=== PATIENT | female | born 1985 | race Caucasian/White ===

== ENCOUNTER 2021-01-07 03:16 | Observation (INO) ==
[2021-01-07 04:01] LABS: Bilirubin,Urine Negative (Negative); Blood,Urine Negative (Negative); Clarity,Urine Clear (Clear); Color,Urine Light-Yellow (Yellow); Glucose,Urine (UA) Normal (Normal); Ketones,Urine Negative (Negative); Leukocyte Esterase,Urine Negative (Negative); Nitrite,Urine Negative (Negative); Protein,Urine Trace mg/dL (Neg-Trace); Specific Gravity,Urine 1.025 (1.010-1.025); Urobilinogen,Urine Normal (Normal)
[2021-01-07] MEDS ORDERED: Ondansetron 4 MG/2 ML VIAL IVP ONE (04:41)
[2021-01-07] MEDS ORDERED: Morphine Sulfate 2 MG/ML SYRINGE IVP ONE (04:42)
[2021-01-07 06:02] LABS: Basophils # 0.1 K/mcL (0.0-0.2); Basophils % 0.4 %; Eosinophils # 0.3 K/mcL (0.0-0.6); Eosinophils % 1.9 %; Hematocrit 44.4 % (35.3-44.9); Hemoglobin 13.7 g/dL (11.5-15.4); Immature Granulocytes % 0.4 % (0-4); Lymphocytes # 3.3 K/mcL (0.6-4.6); Lymphocytes % 20.8 %; Mean Corpuscular HGB Conc 30.9 g/dL (31.6-35.5); Mean Corpuscular Volume 87.4 fL (83.0-100.0); Mean Platelet Volume 10.3 fL (9.4-12.4); Monocytes # 0.9 K/mcL (0.0-1.3); Monocytes % 5.7 %; Neutrophils # 11.1 K/mcL (1.6-8.9); Platelet Count 269 K/mcL (140-400); Red Blood Count 5.08 M/mcL (3.82-4.97); Red Cell Distribution Width 14.5 % (11.5-14.5); Segmented Neutrophils % 70.8 %; White Blood Count 15.7 K/mcL (4.3-11.1)
[2021-01-07 06:23] LABS: BUN/Creatinine Ratio 13 (6-26); Blood Urea Nitrogen 11 mg/dL (6-20); Carbon Dioxide 24 mEq/L (23-29); Chloride 108 mEq/L (98-107); Glucose 105 mg/dL (70-105); Osmolality,Calculated 288 (280-300); Potassium 3.7 mEq/L (3.5-5.1); Sodium 139 mEq/L (136-145); eGFR For African Americans > 60 (> 60); eGFR For Non-African Americans > 60 (> 60)
[2021-01-07] MEDS ORDERED: *HR* FentaNYL (PF) 100 MCG/2 ML VIAL IVP ONE (07:00)
[2021-01-07] MEDS ORDERED: Vancomycin 2,000 MG/520 ML IV.SOLN IVPB ONE (07:45)
[2021-01-07] MEDS ORDERED: Piperacillin/Tazobactam 3.375 GM in 0.9 % Sodium Chloride Mini Bag 100 ML IVPB ONE (07:45)
[2021-01-07] MEDS ORDERED: Naloxone 0.4 MG/ML INJ IVP PRN (08:49)
[2021-01-07] MEDS ORDERED: Acetaminophen 325 MG TABLET PO PRN (08:49)
[2021-01-07] MEDS ORDERED: *HR* HYDROcodone/Acet 5/325 mg TABLET PO PRN (08:49)
[2021-01-07] MEDS ORDERED: Melatonin 3 MG TABLET PO PRN (08:49)
[2021-01-07] MEDS ORDERED: Ondansetron 4 MG/2 ML VIAL IVP PRN (08:49)
[2021-01-07] MEDS: *HR* OxyCODONE Immed Rel 5 MG TABLET PO PRN ×3 (10:00→23:46)
[2021-01-07] MEDS: Piperacillin/Tazobactam 3.375 GM in 0.9 % Sodium Chloride Mini Bag 100 ML IVPB SCH ×2 (16:57→23:47)
[2021-01-08 02:31] LABS: Hematocrit 42.6 % (35.3-44.9); Hemoglobin 12.9 g/dL (11.5-15.4); Mean Corpuscular HGB Conc 30.3 g/dL (31.6-35.5); Mean Corpuscular Hemoglobin 26.9 pg (28.0-33.3); Mean Corpuscular Volume 88.9 fL (83.0-100.0); Platelet Count 255 K/mcL (140-400); Red Blood Count 4.79 M/mcL (3.82-4.97); Red Cell Distribution Width 14.6 % (11.5-14.5); White Blood Count 13.6 K/mcL (4.3-11.1)
[2021-01-08 02:52] LABS: BUN/Creatinine Ratio 18 (6-26); Blood Urea Nitrogen 16 mg/dL (6-20); Calcium 8.8 mg/dL (8.6-10.3); Carbon Dioxide 26 mEq/L (23-29); Chloride 106 mEq/L (98-107); Glucose 115 mg/dL (70-105); Osmolality,Calculated 288 (280-300); Potassium 4.3 mEq/L (3.5-5.1); Sodium 138 mEq/L (136-145); eGFR For African Americans > 60 (> 60); eGFR For Non-African Americans > 60 (> 60)
[2021-01-08 07:47] VITALS: BP 127/75
[2021-01-08] MEDS: Piperacillin/Tazobactam 3.375 GM in 0.9 % Sodium Chloride Mini Bag 100 ML IVPB SCH (08:26)
[2021-01-08] MEDS: *HR* OxyCODONE Immed Rel 5 MG TABLET PO PRN (08:33)
== END 2021-01-08 10:25 | disposition home or self-care (01) ==
LOC: 3BNU 03:16 → EMEROOARM 03:16 → SUATTDRO 08:47 → 3BNU 09:30
PROVIDERS: ADMIT Internal Medicine; ATTEND Internal Medicine

== ENCOUNTER 2022-03-14 18:34 | Inpatient (IN) ==
[2022-03-14] MEDS ORDERED: 0.9 % Sodium Chloride 1,000 ML IVC ONE (23:01)
[2022-03-14] MEDS ORDERED: Iopamidol - 370 500 ML MLS IVP ONE (23:05)
[2022-03-14 23:33] LABS: Basophils # 0.1 K/mcL (0.0-0.2); Basophils % 0.4 %; Eosinophils # 0.7 K/mcL (0.0-0.6); Eosinophils % 3.4 %; Hematocrit 39.1 % (35.3-44.9); Hemoglobin 12.4 g/dL (11.5-15.4); Immature Granulocytes % 1.3 % (0-4); Lymphocytes # 2.3 K/mcL (0.6-4.6); Mean Corpuscular HGB Conc 31.7 g/dL (31.6-35.5); Mean Corpuscular Hemoglobin 27.3 pg (28.0-33.3); Mean Corpuscular Volume 86.1 fL (83.0-100.0); Mean Platelet Volume 9.8 fL (9.4-12.4); Monocytes # 1.9 K/mcL (0.0-1.3); Monocytes % 8.9 %; Neutrophils # 15.9 K/mcL (1.6-8.9); Platelet Count 366 K/mcL (140-400); Red Blood Count 4.54 M/mcL (3.82-4.97); Red Cell Distribution Width 14.7 % (11.5-14.5); White Blood Count 21.2 K/mcL (4.3-11.1)
[2022-03-14] MEDS ORDERED: Vancomycin 2,000 MG/520 ML IV.SOLN IVPB ONE (23:44)
[2022-03-14] MEDS ORDERED: Piperacillin/Tazobactam 3.375 GM in 0.9 % Sodium Chloride Mini Bag 100 ML IVPB ONE (23:44)
[2022-03-14 23:52] LABS: BUN/Creatinine Ratio 13 (6-26); Blood Urea Nitrogen 9 mg/dL (6-20); Calcium 8.8 mg/dL (8.6-10.3); Carbon Dioxide 22 mEq/L (23-29); Chloride 103 mEq/L (98-107); Glucose 89 mg/dL (70-105); Osmolality,Calculated 278 (280-300); Potassium 3.9 mEq/L (3.5-5.1); Sodium 135 mEq/L (136-145)
[2022-03-14 23:53] LABS: Bilirubin,Urine Negative (Negative); Blood,Urine Moderate (Negative); Clarity,Urine Turbid (Clear); Color,Urine Yellow (Yellow); Glucose,Urine (UA) Normal (Normal); Ketones,Urine Trace mg/dL (Negative); Leukocyte Esterase,Urine Moderate (Negative); Mucus,Urine Few per lpf (None-Few); Nitrite,Urine Negative (Negative); PH,Urine 6.5 pH Units (5.0-8.0); Protein,Urine Trace mg/dL (Neg-Trace); Specific Gravity,Urine 1.019 (1.010-1.025); Squamous Epithelial Cell,Urine Few per hpf (None-Few); WBC,Urine 15-30 per hpf (0-3)
[2022-03-15] MEDS ORDERED: Morphine Sulfate 2 MG/ML SYRINGE IVP ONE ×2 (00:13→02:12)
[2022-03-15] MEDS ORDERED: Ondansetron 4 MG/2 ML VIAL IVP PRN (03:12)
[2022-03-15] MEDS ORDERED: polyethylene glycoL 3350 17 GM POWD.PACK PO PRN (03:12)
[2022-03-15] MEDS ORDERED: Ringers Solution, Lactated 1,000 ML IVC SCH (03:15)
[2022-03-15] MEDS ORDERED: *HR* OxyCODONE Immed Rel 5 MG TABLET PO PRN ×2 (04:24→12:47)
[2022-03-15] MEDS: *HR* HYDROmorphone (PF) 1 MG/ML SYRINGE IVP PRN ×4 (05:10→17:35)
[2022-03-15] MEDS ORDERED: Piperacillin/Tazobactam 3.375 GM in 0.9 % Sodium Chloride Mini Bag 100 ML IVPB SCH (08:00)
[2022-03-15] MEDS ORDERED: Pantoprazole 40 MG VIAL IVP SCH (09:00)
[2022-03-15] MEDS ORDERED: Vancomycin 2,000 MG/520 ML IV.SOLN IVPB ONE ×2 (09:30→14:00)
[2022-03-15] MEDS ORDERED: *HR* Midazolam HCl 2 MG/2 ML VIAL ONE (10:04)
[2022-03-15] MEDS ORDERED: *HR* FentaNYL (PF) 100 MCG/2 ML VIAL ONE ×2 (10:04→12:10)
[2022-03-15] MEDS ORDERED: *HR* Propofol 200 MG/20 ML VIAL IVP ONE (10:04)
[2022-03-15] MEDS ORDERED: *HR* Rocuronium Bromide 50 MG/5 ML VIAL ONE (10:08)
[2022-03-15] MEDS ORDERED: Lidocaine -MPF 2% 5 ML VIAL ONE (10:08)
[2022-03-15] MEDS ORDERED: Lidocaine HCL 4 ML Topical Solution (Laryng-O-Jet Kit Sterile Pak) TP ONE (10:08)
[2022-03-15] MEDS ORDERED: Ondansetron 4 MG/2 ML VIAL ONE (10:08)
[2022-03-15] MEDS ORDERED: *HR* Succinylcholine 200 MG/10 ML VIAL IVP ONE (11:01)
[2022-03-15] MEDS ORDERED: Acetaminophen IV 1,000 MG/100 ML BAG IVPB ONE (11:30)
[2022-03-15] MEDS ORDERED: *HR* FentaNYL (PF) 100 MCG/2 ML VIAL IVP ONE (12:10)
[2022-03-15] MEDS: *HR* HYDROmorphone PF 0.5 MG/0.5 ML SYRINGE IVP PRN ×2 (12:22→12:32)
[2022-03-15] MEDS: Piperacillin/Tazobactam 3.375 GM in 0.9 % Sodium Chloride Mini Bag 100 ML IVPB SCH (16:41)
[2022-03-15] MEDS: *HR* Enoxaparin 100 MG/ML SYRINGE SQ SCH (17:36)
[2022-03-15] MEDS: polyethylene glycoL 3350 17 GM POWD.PACK PO PRN (17:49)
[2022-03-15] MEDS: *HR* OxyCODONE Immed Rel 5 MG TABLET PO PRN (19:54)
[2022-03-15] MEDS: Ringers Solution, Lactated 1,000 ML IVC SCH (19:56)
[2022-03-15] MEDS ORDERED: *HR* HYDROmorphone (PF) 1 MG/ML SYRINGE IVP STA (21:59)
[2022-03-16] MEDS: Piperacillin/Tazobactam 3.375 GM in 0.9 % Sodium Chloride Mini Bag 100 ML IVPB SCH ×4 (00:09→23:52)
[2022-03-16] MEDS: *HR* HYDROmorphone (PF) 1 MG/ML SYRINGE IVP PRN ×4 (02:09→16:03)
[2022-03-16] MEDS: Ringers Solution, Lactated 1,000 ML IVC SCH ×3 (03:50→23:48)
[2022-03-16] MEDS: *HR* OxyCODONE Immed Rel 5 MG TABLET PO PRN ×3 (03:50→19:11)
[2022-03-16 08:03] LABS: Basophils # 0.1 K/mcL (0.0-0.2); Basophils % 0.3 %; Eosinophils # 0.1 K/mcL (0.0-0.6); Eosinophils % 0.4 %; Hematocrit 35.3 % (35.3-44.9); Hemoglobin 11.2 g/dL (11.5-15.4); Immature Granulocytes % 1.2 % (0-4); Lymphocytes # 2.4 K/mcL (0.6-4.6); Lymphocytes % 9.9 %; Mean Corpuscular HGB Conc 31.7 g/dL (31.6-35.5); Mean Corpuscular Hemoglobin 27.1 pg (28.0-33.3); Mean Corpuscular Volume 85.3 fL (83.0-100.0); Mean Platelet Volume 9.8 fL (9.4-12.4); Monocytes # 1.8 K/mcL (0.0-1.3); Monocytes % 7.1 %; Platelet Count 331 K/mcL (140-400); Red Blood Count 4.14 M/mcL (3.82-4.97); Red Cell Distribution Width 14.7 % (11.5-14.5); Segmented Neutrophils % 81.1 %; White Blood Count 24.6 K/mcL (4.3-11.1)
[2022-03-16] MEDS: Pantoprazole 40 MG VIAL IVP SCH (08:10)
[2022-03-16] MEDS: polyethylene glycoL 3350 17 GM POWD.PACK PO PRN (08:27)
[2022-03-16] MEDS ORDERED: *HR* HYDROmorphone (PF) 1 MG/ML SYRINGE IVP ONE (11:08)
[2022-03-16] MEDS: *HR* Enoxaparin 100 MG/ML SYRINGE SQ SCH (15:33)
[2022-03-16] MEDS ORDERED: *HR* HYDROmorphone 2 MG/ML SYRINGE IVP PRN ×5 (17:44→18:10)
[2022-03-17] MEDS: *HR* OxyCODONE Immed Rel 5 MG TABLET PO PRN ×4 (03:06→20:43)
[2022-03-17 05:05] LABS: Basophils # 0.1 K/mcL (0.0-0.2); Basophils % 0.3 %; Eosinophils # 0.5 K/mcL (0.0-0.6); Eosinophils % 2.4 %; Hematocrit 35.2 % (35.3-44.9); Hemoglobin 11.1 g/dL (11.5-15.4); Lymphocytes # 3.1 K/mcL (0.6-4.6); Lymphocytes % 15.5 %; Mean Corpuscular HGB Conc 31.5 g/dL (31.6-35.5); Mean Corpuscular Hemoglobin 27.3 pg (28.0-33.3); Mean Corpuscular Volume 86.5 fL (83.0-100.0); Mean Platelet Volume 9.5 fL (9.4-12.4); Monocytes # 1.3 K/mcL (0.0-1.3); Monocytes % 6.3 %; Neutrophils # 14.8 K/mcL (1.6-8.9); Platelet Count 368 K/mcL (140-400); Red Blood Count 4.07 M/mcL (3.82-4.97); Red Cell Distribution Width 14.8 % (11.5-14.5); Segmented Neutrophils % 74.5 %; White Blood Count 19.9 K/mcL (4.3-11.1)
[2022-03-17] MEDS: *HR* HYDROmorphone (PF) 1 MG/ML SYRINGE IVP PRN ×4 (05:23→19:31)
[2022-03-17] MEDS: *HR* Enoxaparin 100 MG/ML SYRINGE SQ SCH ×2 (05:24→17:29)
[2022-03-17] MEDS: Piperacillin/Tazobactam 3.375 GM in 0.9 % Sodium Chloride Mini Bag 100 ML IVPB SCH ×2 (08:44→15:15)
[2022-03-17] MEDS: *HR* HYDROmorphone 2 MG/ML SYRINGE IVP PRN ×2 (12:40→13:08)
[2022-03-17] MEDS: polyethylene glycoL 3350 17 GM POWD.PACK PO PRN (15:16)
[2022-03-17] MEDS: Pantoprazole 40 MG VIAL IVP SCH (18:37)
[2022-03-17] MEDS: Simethicone 80 MG TAB.CHEW PO PRN (20:42)
[2022-03-18] MEDS: *HR* HYDROmorphone 2 MG/ML SYRINGE IVP PRN ×4 (00:07→10:17)
[2022-03-18] MEDS: Piperacillin/Tazobactam 3.375 GM in 0.9 % Sodium Chloride Mini Bag 100 ML IVPB SCH ×3 (00:46→15:41)
[2022-03-18] MEDS: *HR* OxyCODONE Immed Rel 5 MG TABLET PO PRN ×4 (03:15→23:42)
[2022-03-18 05:18] LABS: Basophils # 0.1 K/mcL (0.0-0.2); Basophils % 0.4 %; Eosinophils # 0.5 K/mcL (0.0-0.6); Hemoglobin 11.5 g/dL (11.5-15.4); Immature Granulocytes % 1.6 % (0-4); Lymphocytes % 16.9 %; Mean Corpuscular HGB Conc 31.1 g/dL (31.6-35.5); Mean Corpuscular Hemoglobin 26.8 pg (28.0-33.3); Mean Corpuscular Volume 86.2 fL (83.0-100.0); Mean Platelet Volume 9.5 fL (9.4-12.4); Monocytes # 1.2 K/mcL (0.0-1.3); Monocytes % 6.6 %; Neutrophils # 12.8 K/mcL (1.6-8.9); Platelet Count 357 K/mcL (140-400); Red Blood Count 4.29 M/mcL (3.82-4.97); Red Cell Distribution Width 14.9 % (11.5-14.5); Segmented Neutrophils % 71.5 %; White Blood Count 17.9 K/mcL (4.3-11.1)
[2022-03-18] MEDS: *HR* HYDROmorphone (PF) 1 MG/ML SYRINGE IVP PRN ×3 (05:23→21:28)
[2022-03-18] MEDS: *HR* Enoxaparin 100 MG/ML SYRINGE SQ SCH ×2 (05:24→18:13)
[2022-03-18 06:01] LABS: Estimated Average Glucose 123 mg/dl; Hemoglobin A1C 5.9 %
[2022-03-18] MEDS: Pantoprazole 40 MG VIAL IVP SCH (08:47)
[2022-03-18] MEDS ORDERED: Vancomycin 2,000 MG/520 ML IV.SOLN IVPB ONE (11:00)
[2022-03-18] MEDS: Simethicone 80 MG TAB.CHEW PO PRN ×2 (11:06→18:25)
[2022-03-18] MEDS: Ringers Solution, Lactated 1,000 ML IVC SCH ×2 (13:34→21:29)
[2022-03-18] MEDS: Acetaminophen 325 MG TABLET PO PRN (14:23)
[2022-03-18] MEDS: Clindamycin 900 MG/50 ML 900 MG/50 ML IV.SOLN IVPB SCH ×2 (14:24→22:55)
[2022-03-18] MEDS ORDERED: Fluconazole 150 MG TABLET PO ONE (14:49)
[2022-03-18] MEDS ORDERED: Clindamycin 900 MG/50 ML 900 MG/50 ML IV.SOLN IVPB SCH (16:00)
[2022-03-18] MEDS: Ketorolac 30 MG/ML VIAL IM SCH ×2 (18:14→23:41)
[2022-03-18] MEDS: Vancomycin 2,000 MG/520 ML IV.SOLN IVPB SCH (23:40)
[2022-03-19] MEDS: *HR* HYDROmorphone (PF) 1 MG/ML SYRINGE IVP PRN ×6 (01:48→23:16)
[2022-03-19] MEDS: Piperacillin/Tazobactam 3.375 GM in 0.9 % Sodium Chloride Mini Bag 100 ML IVPB SCH ×3 (02:18→20:08)
[2022-03-19] MEDS: Ketorolac 30 MG/ML VIAL IM SCH ×2 (05:30→17:38)
[2022-03-19] MEDS: *HR* Enoxaparin 100 MG/ML SYRINGE SQ SCH ×2 (05:33→17:38)
[2022-03-19] MEDS: Ringers Solution, Lactated 1,000 ML IVC SCH ×2 (05:39→20:10)
[2022-03-19] MEDS: *HR* OxyCODONE Immed Rel 5 MG TABLET PO PRN ×4 (07:31→21:35)
[2022-03-19] MEDS: Clindamycin 900 MG/50 ML 900 MG/50 ML IV.SOLN IVPB SCH ×3 (07:31→23:14)
[2022-03-19] MEDS: Pantoprazole 40 MG VIAL IVP SCH (09:12)
[2022-03-19] MEDS: Simethicone 80 MG TAB.CHEW PO PRN (09:37)
[2022-03-19] MEDS: *HR* HYDROmorphone 2 MG/ML SYRINGE IVP PRN (10:01)
[2022-03-19] MEDS: Vancomycin 2,000 MG/520 ML IV.SOLN IVPB SCH (11:21)
[2022-03-19] MEDS ORDERED: *HR* HYDROmorphone (PF) 1 MG/ML SYRINGE ONE (18:51)
[2022-03-19] MEDS ORDERED: Simethicone 80 MG TAB.CHEW PO ONE (18:57)
[2022-03-19] MEDS ORDERED: Ringers Solution, Lactated 1,000 ML ONE (19:23)
[2022-03-19] MEDS ORDERED: Piperacillin/Tazobactam 3.375 GM VIAL ONE (20:05)
[2022-03-19] MEDS ORDERED: 0.9 % Sodium Chloride Mini Bag 100 ML ONE (20:06)
[2022-03-19 22:44] LABS: Basophils # 0.1 K/mcL (0.0-0.2); Basophils % 0.4 %; Eosinophils # 0.6 K/mcL (0.0-0.6); Eosinophils % 3.3 %; Hematocrit 33.5 % (35.3-44.9); Hemoglobin 10.5 g/dL (11.5-15.4); Immature Granulocytes % 1.8 % (0-4); Lymphocytes # 2.5 K/mcL (0.6-4.6); Lymphocytes % 13.5 %; Mean Corpuscular HGB Conc 31.3 g/dL (31.6-35.5); Mean Corpuscular Hemoglobin 27.1 pg (28.0-33.3); Mean Corpuscular Volume 86.6 fL (83.0-100.0); Mean Platelet Volume 9.3 fL (9.4-12.4); Monocytes # 1.1 K/mcL (0.0-1.3); Monocytes % 6.3 %; Neutrophils # 13.6 K/mcL (1.6-8.9); Platelet Count 302 K/mcL (140-400); Red Blood Count 3.87 M/mcL (3.82-4.97); Red Cell Distribution Width 14.9 % (11.5-14.5); Segmented Neutrophils % 74.7 %; White Blood Count 18.2 K/mcL (4.3-11.1)
[2022-03-20] MEDS: Vancomycin 2,000 MG/520 ML IV.SOLN IVPB SCH (00:30)
[2022-03-20] MEDS: Ketorolac 30 MG/ML VIAL IM SCH ×3 (00:31→12:32)
[2022-03-20] MEDS: *HR* OxyCODONE Immed Rel 5 MG TABLET PO PRN ×5 (02:29→20:05)
[2022-03-20] MEDS: Piperacillin/Tazobactam 3.375 GM in 0.9 % Sodium Chloride Mini Bag 100 ML IVPB SCH ×3 (05:04→22:40)
[2022-03-20] MEDS: *HR* Enoxaparin 100 MG/ML SYRINGE SQ SCH ×2 (05:04→19:16)
[2022-03-20] MEDS: *HR* HYDROmorphone (PF) 1 MG/ML SYRINGE IVP PRN ×3 (05:05→16:48)
[2022-03-20] MEDS: Clindamycin 900 MG/50 ML 900 MG/50 ML IV.SOLN IVPB SCH ×2 (06:53→15:48)
[2022-03-20] MEDS: Acetaminophen 325 MG TABLET PO PRN (08:11)
[2022-03-20] MEDS: polyethylene glycoL 3350 17 GM POWD.PACK PO PRN (08:11)
[2022-03-20] MEDS: *HR* HYDROmorphone 2 MG/ML SYRINGE IVP PRN ×4 (08:12→22:39)
[2022-03-20] MEDS: Simethicone 80 MG TAB.CHEW PO PRN ×2 (08:12→20:06)
[2022-03-20 08:34] LABS: Basophils # 0.1 K/mcL (0.0-0.2); Basophils % 0.3 %; Eosinophils # 0.6 K/mcL (0.0-0.6); Eosinophils % 3.6 %; Hematocrit 33.2 % (35.3-44.9); Hemoglobin 10.1 g/dL (11.5-15.4); Immature Granulocytes % 1.9 % (0-4); Lymphocytes % 11.4 %; Mean Corpuscular HGB Conc 30.4 g/dL (31.6-35.5); Mean Corpuscular Hemoglobin 26.6 pg (28.0-33.3); Mean Corpuscular Volume 87.4 fL (83.0-100.0); Mean Platelet Volume 9.4 fL (9.4-12.4); Monocytes # 1.3 K/mcL (0.0-1.3); Monocytes % 7.3 %; Neutrophils # 12.9 K/mcL (1.6-8.9); Platelet Count 336 K/mcL (140-400); Red Cell Distribution Width 15.1 % (11.5-14.5); Segmented Neutrophils % 75.5 %; White Blood Count 17.2 K/mcL (4.3-11.1)
[2022-03-20] MEDS ORDERED: Vancomycin 1,500 MG/265 ML IV.SOLN IVPB SCH (12:00)
[2022-03-20] MEDS: Pantoprazole 40 MG VIAL IVP SCH (12:08)
[2022-03-20] MEDS: Ondansetron 4 MG/2 ML VIAL IVP PRN ×2 (13:49→20:06)
[2022-03-20] MEDS ORDERED: Ketorolac 30 MG/ML VIAL IVP SCH (18:00)
[2022-03-20] MEDS: 0.9 % Sodium Chloride 1,000 ML IVC SCH (19:16)
[2022-03-21] MEDS ORDERED: Clindamycin 900 MG/50 ML 900 MG/50 ML IV.SOLN IVPB SCH (00:10)
[2022-03-21] MEDS: *HR* OxyCODONE Immed Rel 5 MG TABLET PO PRN ×4 (00:46→15:26)
[2022-03-21] MEDS: Acetaminophen 325 MG TABLET PO PRN ×2 (00:47→15:27)
[2022-03-21] MEDS: Ondansetron 4 MG/2 ML VIAL IVP PRN ×4 (03:26→22:52)
[2022-03-21] MEDS: 0.9 % Sodium Chloride 1,000 ML IVC SCH ×2 (03:26→13:26)
[2022-03-21] MEDS: *HR* HYDROmorphone (PF) 1 MG/ML SYRINGE IVP PRN ×2 (03:27→13:32)
[2022-03-21 05:37] LABS: Albumin/Globulin Ratio 0.9 (1.1-2.2); Bilirubin,Total 0.6 mg/dL (0.3-1.0); Calcium 8.2 mg/dL (8.6-10.3); Globulin 3.2 g/dL (2.4-3.5); Potassium 4.1 mEq/L (3.5-5.1); Total Protein 6.2 g/dL (6.4-8.9)
[2022-03-21] MEDS: Piperacillin/Tazobactam 3.375 GM in 0.9 % Sodium Chloride Mini Bag 100 ML IVPB SCH ×2 (06:15→13:28)
[2022-03-21] MEDS: *HR* Enoxaparin 100 MG/ML SYRINGE SQ SCH (06:17)
[2022-03-21] MEDS: Simethicone 80 MG TAB.CHEW PO PRN (06:41)
[2022-03-21] MEDS: Pantoprazole 40 MG VIAL IVP SCH (08:28)
[2022-03-21 08:38] LABS: Basophils # 0.1 K/mcL (0.0-0.2); Basophils % 0.3 %; Eosinophils # 0.6 K/mcL (0.0-0.6); Eosinophils % 3.4 %; Hematocrit 32.4 % (35.3-44.9); Hemoglobin 9.9 g/dL (11.5-15.4); Lymphocytes # 1.8 K/mcL (0.6-4.6); Lymphocytes % 10.3 %; Mean Corpuscular HGB Conc 30.6 g/dL (31.6-35.5); Mean Corpuscular Volume 88.3 fL (83.0-100.0); Mean Platelet Volume 9.6 fL (9.4-12.4); Monocytes # 1.6 K/mcL (0.0-1.3); Monocytes % 8.9 %; Neutrophils # 13.5 K/mcL (1.6-8.9); Platelet Count 343 K/mcL (140-400); Red Blood Count 3.67 M/mcL (3.82-4.97); Red Cell Distribution Width 15.3 % (11.5-14.5); Segmented Neutrophils % 76.1 %; White Blood Count 17.7 K/mcL (4.3-11.1)
[2022-03-21] MEDS: *HR* HYDROmorphone 2 MG/ML SYRINGE IVP PRN ×4 (09:53→23:37)
[2022-03-21] MEDS: *HR* Heparin 5,000 UNIT/ML VIAL SQ SCH ×2 (10:59→23:42)
[2022-03-21 14:27] LABS: Bacteria,Urine Few per hpf (None-Few); Bilirubin,Urine Negative (Negative); Blood,Urine Moderate (Negative); Clarity,Urine Turbid (Clear); Color,Urine Light-Yellow (Yellow); Glucose,Urine (UA) Normal (Normal); Hyaline Casts,Urine Few per lpf (None Seen); Ketones,Urine Negative (Negative); Leukocyte Esterase,Urine Large (Negative); Nitrite,Urine Negative (Negative); Protein,Urine 50 mg/dL (Neg-Trace); Specific Gravity,Urine 1.012 (1.010-1.025); Squamous Epithelial Cell,Urine Many per hpf (None-Few); Urobilinogen,Urine Normal (Normal); WBC,Urine 15-30 per hpf (0-3)
[2022-03-21 16:13] LABS: Albumin 3.2 g/dL (3.5-5.7); Bilirubin,Total 0.6 mg/dL (0.3-1.0); Globulin 3.3 g/dL (2.4-3.5); Potassium 4.6 mEq/L (3.5-5.1); Total Protein 6.5 g/dL (6.4-8.9)
[2022-03-21] MEDS ORDERED: *HR* Promethazine 25 MG/ML VIAL IM PRN (19:35)
[2022-03-22] MEDS: 0.9 % Sodium Chloride 1,000 ML IVC SCH ×3 (02:24→17:39)
[2022-03-22] MEDS: *HR* OxyCODONE Immed Rel 5 MG TABLET PO PRN ×3 (02:24→18:53)
[2022-03-22 05:14] LABS: Potassium 4.3 mEq/L (3.5-5.1)
[2022-03-22] MEDS ORDERED: Piperacillin/Tazobactam 3.375 GM in 0.9 % Sodium Chloride Mini Bag 100 ML IVPB SCH ×2 (08:00)
[2022-03-22] MEDS: *HR* HYDROmorphone (PF) 1 MG/ML SYRINGE IVP PRN (08:35)
[2022-03-22] MEDS: *HR* Heparin 5,000 UNIT/ML VIAL SQ SCH ×3 (10:28→21:41)
[2022-03-22] MEDS: Pantoprazole 40 MG VIAL IVP SCH (10:29)
[2022-03-22] MEDS: Ondansetron 4 MG/2 ML VIAL IVP PRN ×2 (11:22→21:40)
[2022-03-22 11:49] LABS: Protein/Creatinine Ratio,Urine 0.73 mg/mg (0.00-0.20)
[2022-03-22] MEDS: Ringers Solution, Lactated 1,000 ML IVC SCH ×3 (11:54→11:57)
[2022-03-22] MEDS: *HR* HYDROmorphone 2 MG/ML SYRINGE IVP PRN ×3 (12:21→21:40)
[2022-03-22] MEDS ORDERED: Ondansetron 4 MG/2 ML VIAL IVP PRN ×2 (14:24→17:24)
[2022-03-22] MEDS ORDERED: *HR* HYDROmorphone PF 0.5 MG/0.5 ML SYRINGE IVP PRN ×2 (14:24→17:24)
[2022-03-22] MEDS ORDERED: Ondansetron 4 MG/2 ML VIAL ONE (14:46)
[2022-03-22] MEDS ORDERED: Lidocaine -MPF 2% 5 ML VIAL ONE (14:46)
[2022-03-22] MEDS ORDERED: *HR* FentaNYL (PF) 100 MCG/2 ML VIAL ONE ×2 (14:46→15:56)
[2022-03-22] MEDS ORDERED: *HR* Propofol 200 MG/20 ML VIAL IVP ONE (14:48)
[2022-03-22] MEDS ORDERED: *HR* Midazolam HCl 2 MG/2 ML VIAL ONE (14:48)
[2022-03-22] MEDS ORDERED: *HR* Succinylcholine 200 MG/10 ML VIAL IVP ONE (14:50)
[2022-03-22] MEDS ORDERED: *HR* Rocuronium Bromide 50 MG/5 ML VIAL ONE (14:51)
[2022-03-22] MEDS ORDERED: Lidocaine HCL 4 ML Topical Solution (Laryng-O-Jet Kit Sterile Pak) TP ONE (14:54)
[2022-03-22] MEDS ORDERED: CefOXitin 2,000 MG VIAL ONE (16:18)
[2022-03-22] MEDS ORDERED: Acetaminophen 325 MG TABLET PO PRN (17:24)
[2022-03-22] MEDS ORDERED: polyethylene glycoL 3350 17 GM POWD.PACK PO PRN (17:24)
[2022-03-22] MEDS ORDERED: *HR* HYDROmorphone 2 MG/ML SYRINGE IVP PRN (17:24)
[2022-03-22] MEDS: Piperacillin/Tazobactam 3.375 GM in 0.9 % Sodium Chloride Mini Bag 100 ML IVPB SCH (20:03)
[2022-03-23] MEDS: *HR* OxyCODONE Immed Rel 5 MG TABLET PO PRN ×4 (00:30→20:20)
[2022-03-23] MEDS: *HR* Promethazine 25 MG/ML VIAL IM PRN (00:31)
[2022-03-23] MEDS: 0.9 % Sodium Chloride 1,000 ML IVC SCH ×4 (03:17→17:14)
[2022-03-23] MEDS: *HR* HYDROmorphone 2 MG/ML SYRINGE IVP PRN ×2 (05:04→18:11)
[2022-03-23] MEDS: *HR* Heparin 5,000 UNIT/ML VIAL SQ SCH ×3 (05:25→20:21)
[2022-03-23 06:21] LABS: Hematocrit 29.4 % (35.3-44.9); Hemoglobin 9.1 g/dL (11.5-15.4); Mean Corpuscular Hemoglobin 26.9 pg (28.0-33.3); Mean Platelet Volume 9.1 fL (9.4-12.4); Platelet Count 308 K/mcL (140-400); Red Blood Count 3.38 M/mcL (3.82-4.97); Red Cell Distribution Width 15.4 % (11.5-14.5); White Blood Count 17.5 K/mcL (4.3-11.1)
[2022-03-23 06:41] LABS: Calcium 7.9 mg/dL (8.6-10.3); Magnesium 2.1 mg/dL (1.6-2.6); Potassium 4.7 mEq/L (3.5-5.1)
[2022-03-23] MEDS: Piperacillin/Tazobactam 3.375 GM in 0.9 % Sodium Chloride Mini Bag 100 ML IVPB SCH ×2 (07:35→20:19)
[2022-03-23] MEDS: Simethicone 80 MG TAB.CHEW PO PRN ×2 (07:42→20:35)
[2022-03-23] MEDS: Pantoprazole 40 MG VIAL IVP SCH (07:42)
[2022-03-23] MEDS: Ondansetron 4 MG/2 ML VIAL IVP PRN ×2 (07:42→17:13)
[2022-03-23 12:40] LABS: Uric Acid 7.7 mg/dL (2.3-7.6)
[2022-03-24] MEDS: 0.9 % Sodium Chloride 1,000 ML IVC SCH ×3 (01:23→17:17)
[2022-03-24 05:27] LABS: Hematocrit 27.6 % (35.3-44.9); Hemoglobin 8.5 g/dL (11.5-15.4); Mean Corpuscular HGB Conc 30.8 g/dL (31.6-35.5); Mean Corpuscular Hemoglobin 27.2 pg (28.0-33.3); Mean Corpuscular Volume 88.5 fL (83.0-100.0); Mean Platelet Volume 9.2 fL (9.4-12.4); Platelet Count 310 K/mcL (140-400); Red Blood Count 3.12 M/mcL (3.82-4.97); Red Cell Distribution Width 15.6 % (11.5-14.5)
[2022-03-24 05:31] LABS: VBG HCO3 20 mEq/L (21-27); VBG PCO2 44 mmHg (41-51); VBG PH 7.28 pH Units (7.32-7.42); VBG PO2 69 mmHg (25-50)
[2022-03-24 05:47] LABS: Albumin 2.8 g/dL (3.5-5.7); Albumin/Globulin Ratio 0.9 (1.1-2.2); Bilirubin,Direct 0.2 mg/dL (0.0-0.2); Bilirubin,Indirect 0.2 mg/dL (0.0-1.0); Bilirubin,Total 0.4 mg/dL (0.3-1.0); Calcium 7.6 mg/dL (8.6-10.3); Globulin 3.2 g/dL (2.4-3.5); Phosphorous 5.9 mg/dL (2.7-4.5); Potassium 4.9 mEq/L (3.5-5.1)
[2022-03-24] MEDS: *HR* HYDROmorphone 2 MG/ML SYRINGE IVP PRN ×2 (07:27→17:17)
[2022-03-24] MEDS: Piperacillin/Tazobactam 3.375 GM in 0.9 % Sodium Chloride Mini Bag 100 ML IVPB SCH ×2 (07:28→20:24)
[2022-03-24] MEDS: *HR* Heparin 5,000 UNIT/ML VIAL SQ SCH ×3 (07:28→20:25)
[2022-03-24] MEDS ORDERED: Ringers Solution, Lactated 1,000 ML IVC SCH (08:00)
[2022-03-24] MEDS: Pantoprazole 40 MG VIAL IVP SCH (08:08)
[2022-03-24] MEDS: Ondansetron 4 MG/2 ML VIAL IVP PRN ×2 (08:09→14:08)
[2022-03-24] MEDS: *HR* OxyCODONE Immed Rel 5 MG TABLET PO PRN ×2 (11:25→20:29)
[2022-03-24] MEDS: Simethicone 80 MG TAB.CHEW PO PRN ×2 (11:43→20:31)
[2022-03-25 03:04] LABS: Hematocrit 28.5 % (35.3-44.9); Hemoglobin 8.7 g/dL (11.5-15.4); Mean Corpuscular HGB Conc 30.5 g/dL (31.6-35.5); Mean Corpuscular Hemoglobin 26.8 pg (28.0-33.3); Mean Corpuscular Volume 87.7 fL (83.0-100.0); Mean Platelet Volume 9.3 fL (9.4-12.4); Platelet Count 319 K/mcL (140-400); Red Blood Count 3.25 M/mcL (3.82-4.97); Red Cell Distribution Width 15.6 % (11.5-14.5); White Blood Count 14.6 K/mcL (4.3-11.1)
[2022-03-25 03:16] LABS: VBG HCO3 21 mEq/L (21-27); VBG PCO2 50 mmHg (41-51); VBG PH 7.22 pH Units (7.32-7.42); VBG PO2 54 mmHg (25-50)
[2022-03-25 03:28] LABS: Calcium 8.1 mg/dL (8.6-10.3); Potassium 4.3 mEq/L (3.5-5.1)
[2022-03-25] MEDS: *HR* OxyCODONE Immed Rel 5 MG TABLET PO PRN ×4 (06:20→20:44)
[2022-03-25] MEDS: *HR* Heparin 5,000 UNIT/ML VIAL SQ SCH ×3 (06:21→20:45)
[2022-03-25] MEDS: Piperacillin/Tazobactam 3.375 GM in 0.9 % Sodium Chloride Mini Bag 100 ML IVPB SCH ×2 (09:30→20:43)
[2022-03-25] MEDS: Pantoprazole 40 MG VIAL IVP SCH (09:33)
[2022-03-25] MEDS: Simethicone 80 MG TAB.CHEW PO PRN (09:34)
[2022-03-25] MEDS: Ondansetron 4 MG/2 ML VIAL IVP PRN ×2 (09:35→16:50)
[2022-03-25] MEDS: *HR* HYDROmorphone 2 MG/ML SYRINGE IVP PRN ×2 (10:19→18:22)
[2022-03-25] MEDS: Sodium Bicarbonate 150 MEQ in Water for inj. (sterile) 1,000 ML IVC SCH ×2 (10:20→20:41)
[2022-03-25] MEDS: *HR* Promethazine 25 MG/ML VIAL IM PRN (23:19)
[2022-03-26] MEDS ORDERED: *HR* HYDROmorphone (PF) 1 MG/ML SYRINGE IVP ONE ×2 (03:26→12:53)
[2022-03-26] MEDS: *HR* OxyCODONE Immed Rel 5 MG TABLET PO PRN ×2 (03:54→09:02)
[2022-03-26] MEDS: *HR* Heparin 5,000 UNIT/ML VIAL SQ SCH ×3 (05:35→21:43)
[2022-03-26 06:09] LABS: Calcium 8.1 mg/dL (8.6-10.3); Potassium 5.3 mEq/L (3.5-5.1)
[2022-03-26] MEDS: Piperacillin/Tazobactam 3.375 GM in 0.9 % Sodium Chloride Mini Bag 100 ML IVPB SCH ×2 (09:02→21:43)
[2022-03-26] MEDS: Pantoprazole 40 MG VIAL IVP SCH (09:02)
[2022-03-26] MEDS ORDERED: SODIUM ZIRCONIUM CYCLOSILICATE 5 GM POWD.PACK PO ONE (11:15)
[2022-03-26] MEDS: *HR* HYDROmorphone (PF) 1 MG/ML SYRINGE IVP PRN ×2 (11:59→16:17)
[2022-03-26] MEDS: Ondansetron 4 MG/2 ML VIAL IVP PRN ×2 (12:00→22:25)
[2022-03-26] MEDS: *HR* Promethazine 25 MG/ML VIAL IM PRN (16:17)
[2022-03-26] MEDS: *HR* HYDROmorphone 2 MG/ML SYRINGE IVP PRN (23:09)
[2022-03-27] MEDS: *HR* Heparin 5,000 UNIT/ML VIAL SQ SCH ×3 (06:19→22:03)
[2022-03-27] MEDS: Piperacillin/Tazobactam 3.375 GM in 0.9 % Sodium Chloride Mini Bag 100 ML IVPB SCH ×2 (08:26→21:56)
[2022-03-27] MEDS: Pantoprazole 40 MG VIAL IVP SCH (08:26)
[2022-03-27] MEDS: Ondansetron 4 MG/2 ML VIAL IVP PRN ×3 (08:40→21:57)
[2022-03-27] MEDS: *HR* HYDROmorphone (PF) 1 MG/ML SYRINGE IVP PRN ×2 (08:49→15:22)
[2022-03-27] MEDS: *HR* HYDROmorphone 2 MG/ML SYRINGE IVP PRN (10:18)
[2022-03-27 10:28] LABS: Basophils # 0.1 K/mcL (0.0-0.2); Basophils % 0.4 %; Eosinophils # 0.6 K/mcL (0.0-0.6); Eosinophils % 4.7 %; Hemoglobin 7.9 g/dL (11.5-15.4); Immature Granulocytes % 0.5 % (0-4); Lymphocytes # 1.6 K/mcL (0.6-4.6); Lymphocytes % 12.1 %; Mean Corpuscular HGB Conc 30.4 g/dL (31.6-35.5); Mean Corpuscular Hemoglobin 26.9 pg (28.0-33.3); Mean Corpuscular Volume 88.4 fL (83.0-100.0); Mean Platelet Volume 9.4 fL (9.4-12.4); Monocytes # 0.9 K/mcL (0.0-1.3); Monocytes % 7.1 %; Platelet Count 341 K/mcL (140-400); Red Blood Count 2.94 M/mcL (3.82-4.97); Red Cell Distribution Width 15.6 % (11.5-14.5); Segmented Neutrophils % 75.2 %; White Blood Count 13.3 K/mcL (4.3-11.1)
[2022-03-27 10:44] LABS: Calcium 8.3 mg/dL (8.6-10.3); Magnesium 1.9 mg/dL (1.6-2.6); Phosphorous 5.7 mg/dL (2.7-4.5); Potassium 4.3 mEq/L (3.5-5.1)
[2022-03-27] MEDS: *HR* OxyCODONE Immed Rel 5 MG TABLET PO PRN (18:13)
[2022-03-27] MEDS: Simethicone 80 MG TAB.CHEW PO PRN (18:41)
[2022-03-27] MEDS ORDERED: Prochlorperazine 10 MG/2 ML VIAL IVP ONE (22:30)
[2022-03-28 03:57] LABS: Basophils # 0.1 K/mcL (0.0-0.2); Basophils % 0.4 %; Eosinophils # 0.3 K/mcL (0.0-0.6); Eosinophils % 1.9 %; Hematocrit 30.3 % (35.3-44.9); Hemoglobin 9.4 g/dL (11.5-15.4); Immature Granulocytes % 0.5 % (0-4); Lymphocytes # 1.6 K/mcL (0.6-4.6); Lymphocytes % 9.7 %; Mean Corpuscular Hemoglobin 26.6 pg (28.0-33.3); Mean Corpuscular Volume 85.8 fL (83.0-100.0); Mean Platelet Volume 9.5 fL (9.4-12.4); Monocytes # 0.8 K/mcL (0.0-1.3); Monocytes % 4.6 %; Neutrophils # 13.8 K/mcL (1.6-8.9); Platelet Count 390 K/mcL (140-400); Red Blood Count 3.53 M/mcL (3.82-4.97); Red Cell Distribution Width 15.3 % (11.5-14.5); Segmented Neutrophils % 82.9 %; White Blood Count 16.6 K/mcL (4.3-11.1)
[2022-03-28 04:46] LABS: Calcium 8.3 mg/dL (8.6-10.3); Magnesium 1.9 mg/dL (1.6-2.6); Phosphorous 5.8 mg/dL (2.7-4.5); Potassium 4.5 mEq/L (3.5-5.1)
[2022-03-28] MEDS: *HR* Heparin 5,000 UNIT/ML VIAL SQ SCH ×3 (05:34→21:40)
[2022-03-28] MEDS: Piperacillin/Tazobactam 3.375 GM in 0.9 % Sodium Chloride Mini Bag 100 ML IVPB SCH ×2 (08:31→21:38)
[2022-03-28] MEDS: Pantoprazole 40 MG VIAL IVP SCH (08:32)
[2022-03-28] MEDS: Ondansetron 4 MG/2 ML VIAL IVP PRN ×2 (10:20→17:07)
[2022-03-28] MEDS: *HR* OxyCODONE Immed Rel 5 MG TABLET PO PRN (19:05)
[2022-03-28] MEDS: *HR* Promethazine 25 MG/ML VIAL IM PRN (22:08)
[2022-03-28] MEDS: Simethicone 80 MG TAB.CHEW PO PRN (22:08)
[2022-03-29] MEDS: *HR* HYDROmorphone 2 MG/ML SYRINGE IVP PRN ×3 (00:15→21:23)
[2022-03-29] MEDS: Ondansetron 4 MG/2 ML VIAL IVP PRN ×4 (00:22→23:42)
[2022-03-29] MEDS: *HR* OxyCODONE Immed Rel 5 MG TABLET PO PRN ×2 (03:21→14:42)
[2022-03-29] MEDS ORDERED: Prochlorperazine 10 MG/2 ML VIAL IVP ONE (03:36)
[2022-03-29] MEDS: *HR* Heparin 5,000 UNIT/ML VIAL SQ SCH ×3 (04:59→21:22)
[2022-03-29 05:32] LABS: Basophils # 0.1 K/mcL (0.0-0.2); Basophils % 0.5 %; Eosinophils # 0.7 K/mcL (0.0-0.6); Eosinophils % 5.3 %; Hematocrit 28.7 % (35.3-44.9); Hemoglobin 8.8 g/dL (11.5-15.4); Immature Granulocytes % 0.5 % (0-4); Lymphocytes # 2.3 K/mcL (0.6-4.6); Lymphocytes % 17.7 %; Mean Corpuscular HGB Conc 30.7 g/dL (31.6-35.5); Mean Corpuscular Hemoglobin 26.7 pg (28.0-33.3); Mean Corpuscular Volume 87.2 fL (83.0-100.0); Mean Platelet Volume 9.4 fL (9.4-12.4); Monocytes # 0.9 K/mcL (0.0-1.3); Monocytes % 6.7 %; Neutrophils # 8.8 K/mcL (1.6-8.9); Platelet Count 378 K/mcL (140-400); Red Blood Count 3.29 M/mcL (3.82-4.97); Red Cell Distribution Width 15.4 % (11.5-14.5); Segmented Neutrophils % 69.3 %; White Blood Count 12.8 K/mcL (4.3-11.1)
[2022-03-29 05:49] LABS: Calcium 8.2 mg/dL (8.6-10.3); Potassium 4.4 mEq/L (3.5-5.1)
[2022-03-29] MEDS: Piperacillin/Tazobactam 3.375 GM in 0.9 % Sodium Chloride Mini Bag 100 ML IVPB SCH ×2 (08:54→21:18)
[2022-03-29] MEDS: Pantoprazole 40 MG VIAL IVP SCH (08:56)
[2022-03-29] MEDS: *HR* HYDROmorphone (PF) 1 MG/ML SYRINGE IVP PRN ×2 (12:03→18:47)
[2022-03-30] MEDS: *HR* HYDROmorphone (PF) 1 MG/ML SYRINGE IVP PRN ×4 (02:40→21:35)
[2022-03-30] MEDS: Ondansetron 4 MG/2 ML VIAL IVP PRN ×5 (04:32→21:34)
[2022-03-30 05:09] LABS: Basophils # 0.1 K/mcL (0.0-0.2); Basophils % 0.6 %; Eosinophils # 0.7 K/mcL (0.0-0.6); Eosinophils % 6.1 %; Hematocrit 29.3 % (35.3-44.9); Immature Granulocytes % 0.6 % (0-4); Lymphocytes # 1.9 K/mcL (0.6-4.6); Lymphocytes % 16.3 %; Mean Corpuscular HGB Conc 30.7 g/dL (31.6-35.5); Mean Corpuscular Hemoglobin 26.5 pg (28.0-33.3); Mean Corpuscular Volume 86.4 fL (83.0-100.0); Mean Platelet Volume 9.3 fL (9.4-12.4); Monocytes # 0.9 K/mcL (0.0-1.3); Platelet Count 369 K/mcL (140-400); Red Blood Count 3.39 M/mcL (3.82-4.97); Red Cell Distribution Width 15.5 % (11.5-14.5); Segmented Neutrophils % 68.4 %; White Blood Count 11.7 K/mcL (4.3-11.1)
[2022-03-30 05:28] LABS: Calcium 8.3 mg/dL (8.6-10.3); Potassium 4.1 mEq/L (3.5-5.1)
[2022-03-30] MEDS: *HR* Heparin 5,000 UNIT/ML VIAL SQ SCH ×3 (06:58→21:35)
[2022-03-30] MEDS: Piperacillin/Tazobactam 3.375 GM in 0.9 % Sodium Chloride Mini Bag 100 ML IVPB SCH ×2 (08:34→21:34)
[2022-03-30] MEDS: Pantoprazole 40 MG VIAL IVP SCH (08:35)
[2022-03-30] MEDS: *HR* OxyCODONE Immed Rel 5 MG TABLET PO PRN ×3 (08:35→18:08)
[2022-03-30] MEDS: *HR* Promethazine 25 MG/ML VIAL IM PRN ×2 (11:26→18:08)
[2022-03-31] MEDS: *HR* Promethazine 25 MG/ML VIAL IM PRN ×2 (01:30→13:13)
[2022-03-31] MEDS: *HR* HYDROmorphone (PF) 1 MG/ML SYRINGE IVP PRN ×4 (01:37→20:55)
[2022-03-31] MEDS: *HR* Heparin 5,000 UNIT/ML VIAL SQ SCH ×3 (05:04→20:54)
[2022-03-31] MEDS: Ondansetron 4 MG/2 ML VIAL IVP PRN ×4 (05:05→20:54)
[2022-03-31] MEDS: *HR* OxyCODONE Immed Rel 5 MG TABLET PO PRN ×3 (05:05→16:41)
[2022-03-31] MEDS: Piperacillin/Tazobactam 3.375 GM in 0.9 % Sodium Chloride Mini Bag 100 ML IVPB SCH ×2 (08:21→22:32)
[2022-03-31 10:45] LABS: Basophils # 0.1 K/mcL (0.0-0.2); Basophils % 0.6 %; Eosinophils # 0.7 K/mcL (0.0-0.6); Eosinophils % 5.8 %; Hematocrit 30.5 % (35.3-44.9); Hemoglobin 9.3 g/dL (11.5-15.4); Immature Granulocytes % 0.5 % (0-4); Lymphocytes # 1.8 K/mcL (0.6-4.6); Mean Corpuscular HGB Conc 30.5 g/dL (31.6-35.5); Mean Corpuscular Hemoglobin 26.6 pg (28.0-33.3); Mean Corpuscular Volume 87.1 fL (83.0-100.0); Mean Platelet Volume 9.4 fL (9.4-12.4); Monocytes # 0.9 K/mcL (0.0-1.3); Monocytes % 7.7 %; Neutrophils # 8.2 K/mcL (1.6-8.9); Platelet Count 353 K/mcL (140-400); Red Cell Distribution Width 15.5 % (11.5-14.5); Segmented Neutrophils % 70.4 %; White Blood Count 11.7 K/mcL (4.3-11.1)
[2022-03-31 11:05] LABS: Albumin 3.2 g/dL (3.5-5.7); Calcium 8.4 mg/dL (8.6-10.3); Magnesium 1.9 mg/dL (1.6-2.6); Phosphorous 5.2 mg/dL (2.7-4.5)
[2022-04-01] MEDS: Ondansetron 4 MG/2 ML VIAL IVP PRN ×4 (02:18→20:22)
[2022-04-01] MEDS: *HR* HYDROmorphone (PF) 1 MG/ML SYRINGE IVP PRN ×4 (02:18→20:22)
[2022-04-01] MEDS: *HR* Heparin 5,000 UNIT/ML VIAL SQ SCH ×2 (05:28→22:27)
[2022-04-01] MEDS ORDERED: Lidocaine Jelly 11 ml Syringe TP ONE (09:08)
[2022-04-01 10:57] LABS: Basophils # 0.1 K/mcL (0.0-0.2); Basophils % 0.6 %; Eosinophils # 0.6 K/mcL (0.0-0.6); Eosinophils % 4.6 %; Hematocrit 28.7 % (35.3-44.9); Hemoglobin 8.9 g/dL (11.5-15.4); Lymphocytes # 1.7 K/mcL (0.6-4.6); Mean Corpuscular Hemoglobin 26.7 pg (28.0-33.3); Mean Corpuscular Volume 86.2 fL (83.0-100.0); Mean Platelet Volume 9.7 fL (9.4-12.4); Monocytes # 0.8 K/mcL (0.0-1.3); Monocytes % 6.1 %; Neutrophils # 9.2 K/mcL (1.6-8.9); Platelet Count 301 K/mcL (140-400); Red Blood Count 3.33 M/mcL (3.82-4.97); Red Cell Distribution Width 15.7 % (11.5-14.5); Segmented Neutrophils % 73.7 %; White Blood Count 12.5 K/mcL (4.3-11.1)
[2022-04-01] MEDS: *HR* OxyCODONE Immed Rel 5 MG TABLET PO PRN ×2 (11:11→15:49)
[2022-04-01 11:16] LABS: Calcium 8.5 mg/dL (8.6-10.3); Potassium 4.5 mEq/L (3.5-5.1)
[2022-04-01] MEDS ORDERED: Piperacillin/Tazobactam 3.375 GM in 0.9 % Sodium Chloride Mini Bag 100 ML IVPB SCH (12:00)
[2022-04-01 12:35] LABS: INR 1.4; Prothrombin Time 15.9 Seconds (9.4-12.1)
[2022-04-02] MEDS: *HR* HYDROmorphone (PF) 1 MG/ML SYRINGE IVP PRN ×3 (04:32→17:53)
[2022-04-02] MEDS: *HR* Heparin 5,000 UNIT/ML VIAL SQ SCH ×3 (04:34→20:06)
[2022-04-02] MEDS: Simethicone 80 MG TAB.CHEW PO PRN (10:04)
[2022-04-02] MEDS: *HR* OxyCODONE Immed Rel 5 MG TABLET PO PRN ×2 (10:05→15:14)
[2022-04-02] MEDS: Ondansetron 4 MG/2 ML VIAL IVP PRN ×2 (12:07→17:53)
[2022-04-02 14:42] LABS: Basophils # 0.1 K/mcL (0.0-0.2); Basophils % 0.5 %; Eosinophils # 0.5 K/mcL (0.0-0.6); Eosinophils % 4.6 %; Hematocrit 29.8 % (35.3-44.9); Hemoglobin 8.8 g/dL (11.5-15.4); Immature Granulocytes % 0.5 % (0-4); Lymphocytes % 18.3 %; Mean Corpuscular HGB Conc 29.5 g/dL (31.6-35.5); Mean Corpuscular Hemoglobin 26.6 pg (28.0-33.3); Mean Platelet Volume 9.7 fL (9.4-12.4); Monocytes # 0.7 K/mcL (0.0-1.3); Monocytes % 6.3 %; Neutrophils # 7.7 K/mcL (1.6-8.9); Platelet Count 294 K/mcL (140-400); Red Blood Count 3.31 M/mcL (3.82-4.97); Red Cell Distribution Width 15.9 % (11.5-14.5); Segmented Neutrophils % 69.8 %
[2022-04-02 14:57] LABS: Calcium 8.4 mg/dL (8.6-10.3); Magnesium 1.8 mg/dL (1.6-2.6); Phosphorous 4.5 mg/dL (2.7-4.5); Potassium 3.7 mEq/L (3.5-5.1)
[2022-04-03] MEDS: *HR* HYDROmorphone (PF) 1 MG/ML SYRINGE IVP PRN ×4 (00:29→23:30)
[2022-04-03] MEDS: Ondansetron 4 MG/2 ML VIAL IVP PRN ×3 (00:32→21:12)
[2022-04-03 04:58] LABS: Basophils # 0.1 K/mcL (0.0-0.2); Basophils % 0.5 %; Eosinophils # 0.5 K/mcL (0.0-0.6); Eosinophils % 4.5 %; Hematocrit 29.3 % (35.3-44.9); Hemoglobin 8.8 g/dL (11.5-15.4); Immature Granulocytes % 0.5 % (0-4); Lymphocytes # 2.2 K/mcL (0.6-4.6); Lymphocytes % 18.5 %; Mean Corpuscular Hemoglobin 26.5 pg (28.0-33.3); Mean Corpuscular Volume 88.3 fL (83.0-100.0); Mean Platelet Volume 9.8 fL (9.4-12.4); Monocytes # 0.9 K/mcL (0.0-1.3); Monocytes % 7.6 %; Neutrophils # 8.2 K/mcL (1.6-8.9); Platelet Count 295 K/mcL (140-400); Red Blood Count 3.32 M/mcL (3.82-4.97); Red Cell Distribution Width 15.9 % (11.5-14.5); Segmented Neutrophils % 68.4 %
[2022-04-03 05:06] LABS: INR 1.3; Prothrombin Time 14.5 Seconds (9.4-12.1)
[2022-04-03 05:17] LABS: Calcium 8.5 mg/dL (8.6-10.3)
[2022-04-03] MEDS: *HR* Heparin 5,000 UNIT/ML VIAL SQ SCH ×3 (05:40→21:12)
[2022-04-03] MEDS: *HR* OxyCODONE Immed Rel 5 MG TABLET PO PRN ×2 (09:55→21:11)
[2022-04-03] MEDS ORDERED: *HR* HYDROmorphone (PF) 1 MG/ML SYRINGE IVP ONE (10:26)
[2022-04-04 04:40] LABS: Calcium 8.1 mg/dL (8.6-10.3); Phosphorous 4.3 mg/dL (2.7-4.5); Potassium 3.7 mEq/L (3.5-5.1)
[2022-04-04 05:06] LABS: Basophils # 0.1 K/mcL (0.0-0.2); Basophils % 0.4 %; Eosinophils # 0.6 K/mcL (0.0-0.6); Eosinophils % 4.7 %; Hematocrit 29.5 % (35.3-44.9); Immature Granulocytes % 0.6 % (0-4); Lymphocytes # 2.2 K/mcL (0.6-4.6); Lymphocytes % 18.2 %; Mean Corpuscular HGB Conc 30.5 g/dL (31.6-35.5); Mean Corpuscular Hemoglobin 26.8 pg (28.0-33.3); Mean Corpuscular Volume 87.8 fL (83.0-100.0); Mean Platelet Volume 10.1 fL (9.4-12.4); Monocytes % 7.8 %; Neutrophils # 8.4 K/mcL (1.6-8.9); Platelet Count 280 K/mcL (140-400); Red Blood Count 3.36 M/mcL (3.82-4.97); Red Cell Distribution Width 15.9 % (11.5-14.5); Segmented Neutrophils % 68.3 %; White Blood Count 12.2 K/mcL (4.3-11.1)
[2022-04-04] MEDS: *HR* Heparin 5,000 UNIT/ML VIAL SQ SCH ×3 (06:06→20:10)
[2022-04-04] MEDS: *HR* HYDROmorphone (PF) 1 MG/ML SYRINGE IVP PRN ×3 (06:06→20:08)
[2022-04-04] MEDS: *HR* OxyCODONE Immed Rel 5 MG TABLET PO PRN ×2 (10:55→18:31)
[2022-04-04] MEDS: Ondansetron 4 MG/2 ML VIAL IVP PRN ×2 (10:56→18:32)
[2022-04-05] MEDS: Ondansetron 4 MG/2 ML VIAL IVP PRN ×4 (00:32→22:26)
[2022-04-05] MEDS: *HR* OxyCODONE Immed Rel 5 MG TABLET PO PRN ×3 (00:33→19:38)
[2022-04-05] MEDS: *HR* HYDROmorphone (PF) 1 MG/ML SYRINGE IVP PRN ×4 (02:20→22:27)
[2022-04-05 04:31] LABS: Basophils # 0.1 K/mcL (0.0-0.2); Basophils % 0.5 %; Eosinophils # 0.7 K/mcL (0.0-0.6); Eosinophils % 5.1 %; Hematocrit 31.6 % (35.3-44.9); Hemoglobin 9.5 g/dL (11.5-15.4); Immature Granulocytes % 0.5 % (0-4); Lymphocytes # 2.1 K/mcL (0.6-4.6); Lymphocytes % 15.5 %; Mean Corpuscular HGB Conc 30.1 g/dL (31.6-35.5); Mean Corpuscular Hemoglobin 26.7 pg (28.0-33.3); Mean Corpuscular Volume 88.8 fL (83.0-100.0); Mean Platelet Volume 9.6 fL (9.4-12.4); Monocytes # 0.9 K/mcL (0.0-1.3); Monocytes % 6.4 %; Neutrophils # 9.6 K/mcL (1.6-8.9); Platelet Count 299 K/mcL (140-400); Red Blood Count 3.56 M/mcL (3.82-4.97); Red Cell Distribution Width 15.9 % (11.5-14.5); White Blood Count 13.3 K/mcL (4.3-11.1)
[2022-04-05 04:50] LABS: Calcium 8.3 mg/dL (8.6-10.3); Phosphorous 4.6 mg/dL (2.7-4.5); Potassium 3.5 mEq/L (3.5-5.1)
[2022-04-05] MEDS: *HR* Heparin 5,000 UNIT/ML VIAL SQ SCH ×3 (06:40→21:22)
[2022-04-06 03:28] LABS: Basophils % 0.3 %; Eosinophils # 0.6 K/mcL (0.0-0.6); Eosinophils % 5.3 %; Hematocrit 31.9 % (35.3-44.9); Hemoglobin 9.5 g/dL (11.5-15.4); Immature Granulocytes % 0.4 % (0-4); Lymphocytes # 2.1 K/mcL (0.6-4.6); Lymphocytes % 18.1 %; Mean Corpuscular HGB Conc 29.8 g/dL (31.6-35.5); Mean Corpuscular Hemoglobin 26.2 pg (28.0-33.3); Mean Corpuscular Volume 87.9 fL (83.0-100.0); Mean Platelet Volume 9.9 fL (9.4-12.4); Monocytes # 0.9 K/mcL (0.0-1.3); Monocytes % 7.9 %; Neutrophils # 7.9 K/mcL (1.6-8.9); Platelet Count 288 K/mcL (140-400); Red Blood Count 3.63 M/mcL (3.82-4.97); Red Cell Distribution Width 16.1 % (11.5-14.5); White Blood Count 11.7 K/mcL (4.3-11.1)
[2022-04-06 03:46] LABS: Calcium 8.4 mg/dL (8.6-10.3); Phosphorous 4.8 mg/dL (2.7-4.5); Potassium 3.6 mEq/L (3.5-5.1)
[2022-04-06] MEDS: *HR* Heparin 5,000 UNIT/ML VIAL SQ SCH (04:13)
[2022-04-06] MEDS: *HR* OxyCODONE Immed Rel 5 MG TABLET PO PRN ×2 (04:14→10:19)
[2022-04-06] MEDS: *HR* HYDROmorphone (PF) 1 MG/ML SYRINGE IVP PRN (05:55)
[2022-04-06] MEDS: Ondansetron 4 MG/2 ML VIAL IVP PRN ×2 (05:55→10:19)
[2022-04-06 07:58] VITALS: BP 115/61; PULSE 70; TEMP 98.1; O2SAT 97
== END 2022-04-06 11:34 | disposition home health service (06) | DRG 856 ==
LOC: EMEROOARM 18:34 → 1NENUPED 18:34 → SUATTDRO 03-18 22:12 → 2ANU 03-22 09:52
PROVIDERS: ADMIT Student in an Organized Health Care Education/Training Program; ATTEND Internal Medicine